=== PATIENT | male | born 1945 | race Caucasian/White ===

== ENCOUNTER 2017-08-11 04:53 | Inpatient (IN) | payer OTHER ==
[~2017-08-11] VITALS: Ht 182.9 cm; Wt 98.4 kg
[2017-08-11 05:44] LABS: CHLORIDE 105 mEq/L (99-109); POTASSIUM 3.7 mEq/L (3.7-5.4); SODIUM 143 mEq/L (136-147)
[2017-08-11 05:46] LABS: GLUCOSE 112 mg/dL (70-99)
[2017-08-11 05:47] LABS: HEMOGLOBIN 14.2 G/DL (12.5-16.6); MCH 34.1 PG (29.0-34.0); MCHC 35.5 G/DL (30.0-36.0); MCV 96.2 FL (86-99); PLATELET COUNT 208 K/uL (156-360); RBC DIS.WIDTH-CV 12.4 % (11.8-14.6); RBC DIS.WIDTH-SD 44.2 % (39-53); RED BLOOD COUNT 4.16 M/uL (4.00-5.50); WHITE BLOOD COUNT 12.8 K/uL (4.1-10.2)
[2017-08-11 05:50] LABS: CREATININE 0.9 mg/dL (0.6-1.3); GFR ESTIMATE (CALCULATED) > 59 mL/min/ (58.99-99999); UREA NITROGEN (BUN) 18 mg/dL (9-23)
[2017-08-11] MEDS ORDERED: ALBUTEROL2.5 MG/3 M IH (09:23)
[2017-08-11] MEDS ORDERED: DELTASONE20 M1 PO (09:23)
[2017-08-11] MEDS ORDERED: PROAIR HFA8.5 GM IH (09:23)
[2017-08-11] MEDS ORDERED: LIPITOR20 MG PO (09:24)
[2017-08-11] MEDS ORDERED: ASACOL HD800 MG PO (09:24)
[2017-08-11] MEDS ORDERED: APRISO0.375 GM PO (09:24)
[2017-08-11] MEDS ORDERED: DIOVAN80 MG PO (09:24)
[2017-08-11] MEDS ORDERED: AZELASTINE137 MCG/0. BOTH NARES (09:24)
[2017-08-11] MEDS ORDERED: DAILY VALUE1 EACH PO (09:25)
[2017-08-11] MEDS ORDERED: CO Q-1075 MG PO (09:25)
[2017-08-11] MEDS ORDERED: GINKGO BILOBA40 M1 PO (09:25)
[2017-08-11] MEDS ORDERED: ADULT ASPIRIN81 MG PO (09:25)
[2017-08-11] MEDS ORDERED: PROBIOTIC1 EAC3 PO (09:25)
[2017-08-11 11:00] VITALS: BP 147/76
[2017-08-11 15:26] VITALS: BP 105/58
[2017-08-11 19:23] VITALS: BP 155/77
[2017-08-12 00:47] VITALS: BP 123/59
[2017-08-12 03:25] VITALS: BP 119/60
[2017-08-12 05:46] LABS: HEMATOCRIT 37.2 % (38.0-50.0); HEMOGLOBIN 12.6 G/DL (12.5-16.6); MCH 33.2 PG (29.0-34.0); MCHC 33.9 G/DL (30.0-36.0); MCV 97.9 FL (86-99); PLATELET COUNT 192 K/uL (156-360); RBC DIS.WIDTH-CV 12.6 % (11.8-14.6); RBC DIS.WIDTH-SD 45.4 % (39-53); WHITE BLOOD COUNT 12.2 K/uL (4.1-10.2)
[2017-08-12 06:05] LABS: CHLORIDE 107 MEQ/L (99-109); CREATININE 0.8 MG/DL (0.6-1.3); GFR ESTIMATE (CALCULATED) > 59 mL/min/ (58.99-99999); GLUCOSE 157 mg/dL (70-99); POTASSIUM 4.2 MEQ/L (3.7-5.4); SODIUM 140 MEQ/L (136-147); UREA NITROGEN (BUN) 14 mg/dL (9-23)
[2017-08-12 06:58] VITALS: BP 112/71
[2017-08-12 11:01] VITALS: BP 118/61
[2017-08-12 15:10] VITALS: BP 144/63
[2017-08-12 20:59] VITALS: BP 132/67
[2017-08-13 00:42] VITALS: BP 121/65
[2017-08-13 04:13] VITALS: BP 100/55
[2017-08-13 06:10] LABS: HEMATOCRIT 36.5 % (38.0-50.0); HEMOGLOBIN 12.3 G/DL (12.5-16.6); MCH 33.4 PG (29.0-34.0); MCHC 33.7 G/DL (30.0-36.0); MCV 99.2 FL (86-99); PLATELET COUNT 201 K/uL (156-360); RBC DIS.WIDTH-CV 12.6 % (11.8-14.6); RBC DIS.WIDTH-SD 45.8 % (39-53); RED BLOOD COUNT 3.68 M/uL (4.00-5.50); WHITE BLOOD COUNT 12.3 K/uL (4.1-10.2)
[2017-08-13 07:05] VITALS: BP 120/55
[2017-08-13 12:00] VITALS: BP 133/63
[2017-08-13 15:15] VITALS: BP 128/64
[2017-08-13 19:34] VITALS: BP 122/65
[2017-08-14 03:57] VITALS: BP 123/58
[2017-08-14 07:25] VITALS: BP 122/67
[2017-08-14 15:00] VITALS: BP 133/66
[2017-08-14 23:17] VITALS: BP 134/72
[2017-08-15 06:40] LABS: HEMATOCRIT 38.6 % (38.0-50.0); HEMOGLOBIN 12.9 G/DL (12.5-16.6); MCH 32.8 PG (29.0-34.0); MCHC 33.4 G/DL (30.0-36.0); MCV 98.2 FL (86-99); PLATELET COUNT 197 K/uL (156-360); RBC DIS.WIDTH-CV 12.3 % (11.8-14.6); RBC DIS.WIDTH-SD 44.9 % (39-53); RED BLOOD COUNT 3.93 M/uL (4.00-5.50)
[2017-08-15 07:31] VITALS: BP 122/73
[2017-08-15 16:27] VITALS: BP 120/62
[2017-08-15 23:27] VITALS: BP 120/61
[2017-08-16 07:53] VITALS: BP 142/64
[2017-08-16] MEDS ORDERED: PREDNISONE10 MG PO (08:32)
[2017-08-16] MEDS ORDERED: DUONEB 2.5-0.5 M3 ML AEROSOL (08:32)
[2017-08-16] MEDS ORDERED: BENZONATATE100 MG PO (08:32)
[2017-08-16] MEDS ORDERED: DULERA 200 MCG/13 GM IH (08:32)
[2017-08-16] MEDS ORDERED: Robitussin AC,Tussi- PO (08:32)
== END 2017-08-16 12:45 | disposition home or self-care (01) | DRG 189 ==
LOC: EME 04:53 → 5EAST 09:29 → EDOF 09:29 → ENRESERV 09:30 → 5EAST 10:43
PROVIDERS: Hospitalist; Internal Medicine; Physician Assistant Medical
DX: J96.01 Acute respiratory failure with hypoxia (principal); J67.9 Hypersensitivity pneumonitis due to unspecified organic dust; E78.5 Hyperlipidemia, unspecified; I10 Essential (primary) hypertension; Z87.891 Personal history of nicotine dependence; J44.1 Chronic obstructive pulmonary disease with (acute) exacerbation; K51.90 Ulcerative colitis, unspecified, without complications; Z79.82 Long term (current) use of aspirin; J98.01 Acute bronchospasm; D72.829 Elevated white blood cell count, unspecified; Z88.6 Allergy status to analgesic agent
CPT/HCPCS: 71046; 71275; 80048; 83605; 84145 90; 85027; 86331 90; 86606 90; 86609 90; 87040; 87449; 87641; 94010; 94640; 94640 76; 94644; 94667; 94668; 94799; 99202; 99281; 99285; J0456; J0692; J0696; J1644; J2405; J2930; J3370; J3475; J7030; J7512